=== PATIENT | female | born 2000 | race Caucasian/White ===

== ENCOUNTER 2020-08-17 04:17 | Emergency (ER) | payer OTHER ==
[~2020-08-17 04:17] MED LIST: FLAGYL500 MG PO
[2020-08-17 05:00] LABS: BUN/CREATININE RATIO 6 (0-10)
[2020-08-17 05:02] LABS: HEMOGLOBIN 13.2 gm/dl (12.3-15.3); RED BLOOD COUNT 4.87 M/UL (4.00-5.10); WHITE BLOOD COUNT 10.2 K/UL (4.5-11.0)
== END 2020-08-17 16:14 | disposition home or self-care (01) ==
LOC: ER1 04:17
PROVIDERS: Family Medicine
DX: T43.222A Poisoning by selective serotonin reuptake inhibitors, intentional self-harm, initial encounter (principal); F10.10 Alcohol abuse, uncomplicated; F17.290 Nicotine dependence, other tobacco product, uncomplicated; Z79.899 Other long term (current) drug therapy; Z20.822 Contact with and (suspected) exposure to COVID-19
CPT/HCPCS: 80053; 80307; 81001; 82550; 82553; 83874; 84484; 84703; 85025; 93005; 99284; G0480; U0002

== ENCOUNTER 2021-03-14 11:35 | Emergency (ER) | payer OTHER ==
[~2021-03-14] VITALS: Ht 160 cm; Wt 86.2 kg
[2021-03-14 13:31] LABS: RED BLOOD COUNT 5.14 M/UL (4.00-5.10); WHITE BLOOD COUNT 10.7 K/UL (4.5-11.0)
[2021-03-14 14:18] LABS: BUN/CREATININE RATIO 13 (0-10)
[2021-03-14] MEDS ORDERED: ONDANSETRON ODT4 MG SL (17:18)
== END 2021-03-14 17:36 | disposition home or self-care (01) ==
LOC: ER1 11:35
PROVIDERS: Physician Assistant
DX: E86.0 Dehydration (principal); R41.0 Disorientation, unspecified; R11.10 Vomiting, unspecified; F17.290 Nicotine dependence, other tobacco product, uncomplicated; J45.909 Unspecified asthma, uncomplicated; Z98.84 Bariatric surgery status
CPT/HCPCS: 70450; 80053; 80307; 81001; 83690; 83735; 84703; 85025; 96374; 96375; 99284; J1885; J2405; J3411; J3475; J7030